=== PATIENT | female | born 1975 | race Hispanic/Latino ===

== ENCOUNTER 2016-06-20 15:28 | Outpatient (CLI) | payer BC ==
[2016-06-20 17:33] LABS: Thyroid Stimulating Hormone 0.6234 uIU/mL (0.35-4.94)
[2016-06-21 18:09] LABS: T4 5.7 ug/dL (4.87-11.72)
== END 2016-06-20 15:29 | disposition home or self-care (01) ==
LOC: NAV LAB 15:28
PROVIDERS: ATTEND Internal Medicine Endocrinology, Diabetes & Metabolism
DX: R53.83 Other fatigue (principal)
CPT/HCPCS: 36415; 84436; 84443; 84481

== ENCOUNTER 2016-09-26 09:02 | Outpatient (CLI) | payer BC ==
[2016-09-26 10:25] LABS: ALT (SGPT) 26 U/L (8-55); AST (SGOT) 23 U/L (5-34); Albumin 4.3 g/dL (3.5-5.0); Alkaline Phosphatase 75 U/L (40-150); Anion Gap 12 mmol/L (10-20); BUN (Urea Nitrogen) 10 mg/dL (7.0-18.7); Bilirubin, Total 0.6 mg/dL (0.2-1.2); Calc. Creatinine Clearance 0 mL/min (70-130); Calcium 9.6 mg/dL (7.8-10.44); Carbon Dioxide 26 mmol/L (22-29); Cardiac Risk 4.5 (Less than 4.5); Chloride 109 mmol/L (98-107); Cholesterol 211 mg/dl (< 200 Desired); Estimated GFR-MDRD 78; Globulin 3.4 g/dL (2.4-3.5); Glucose 97 mg/dL (70-105); HDL Cholesterol 47 mg/dL (>60 Neg Risk); LDL Cholesterol, Calculated 143 mg/dL; Potassium 3.4 mmol/L (3.5-5.1); Protein, Total 7.7 g/dL (6.0-8.3); Sodium 144 mmol/L (136-145); Triglycerides 104 mg/dL (Less than 150)
[2016-09-26 10:41] LABS: Free T4 (Free Thyroxine) 0.93 ng/dL (0.70-1.48); Thyroid Stimulating Hormone 0.088 uIU/mL (0.35-4.94); Vitamin D, 25 Hydroxy 30.5 ng/ml (> 30.0)
[2016-09-26 12:05] LABS: #Eosinphils 0.3 thou/uL (0.0-0.7); #Lymphocytes 1.9 thou/uL (1.20-3.40); #Monocytes 0.4 thou/uL (0.11-0.59); #Neutrophils 2.1 thou/uL (1.40-6.50); %Basophils 0.8 % (0.0-1.0); %Eosinophils 5.4 % (0.0-10.0); %Monocytes 9.2 % (0.0-10.0); %Neutrophils 44.6 % (42.0-75.0); Hemoglobin 12.4 g/dL (12.0-16.0); Mean Corpuscular HGB CONC 33.2 g/dL (32.0-36.0); Mean Corpuscular Hemoglobin 30.2 pg (27.0-31.0); Mean Platelet Volume 8.3 fL (7.4-10.4); Platelet Count 238 thou/uL (130-400); RBC Distribution Width 11.6 % (11.5-14.5); White Blood Cell (WBC) Count 4.8 thou/uL (4.8-10.8)
== END 2016-09-26 09:03 | disposition home or self-care (01) ==
LOC: NAV LAB 09:02
PROVIDERS: ATTEND Internal Medicine Endocrinology, Diabetes & Metabolism
DX: E03.9 Hypothyroidism, unspecified (principal); E55.9 Vitamin D deficiency, unspecified
CPT/HCPCS: 80053; 80061; 82306; 84439; 84443; 84481; 85025; 86376; 86800

== ENCOUNTER 2018-02-20 07:48 | Emergency (ER) | payer BC ==
[2018-02-20 08:17] LABS: #Basophils 0.1 thou/uL (0.0-0.2); #Eosinphils 0.2 thou/uL (0.0-0.7); #Lymphocytes 1.8 thou/uL (1.20-3.40); #Monocytes 0.5 thou/uL (0.11-0.59); #Neutrophils 3.3 thou/uL (1.40-6.50); %Basophils 1.2 % (0.0-1.0); %Lymphocytes 30.7 % (21.0-51.0); %Monocytes 7.8 % (0.0-10.0); %Neutrophils 56.3 % (42.0-75.0); Hemoglobin 13.4 g/dL (12.0-16.0); Mean Corpuscular HGB CONC 34.6 g/dL (32.0-36.0); Mean Corpuscular Hemoglobin 31.8 pg (27.0-31.0); Mean Corpuscular Volume 91.9 fL (78.0-98.0); Mean Platelet Volume 8.1 fL (7.4-10.4); Platelet Count 268 thou/uL (130-400); Red Blood Cell (RBC) Count 4.21 mill/uL (4.20-5.40); White Blood Cell (WBC) Count 5.9 thou/uL (4.8-10.8)
[2018-02-20 08:21] LABS: MDiff Complete? YES; Manual Diff?? NO
[2018-02-20] MEDS ORDERED: Ketorolac Tromethamine 30 MG/ML VIAL ONE (08:21)
[2018-02-20 08:34] LABS: ALT (SGPT) 26 U/L (8-55); AST (SGOT) 21 U/L (5-34); Albumin 4.3 g/dL (3.5-5.0); Alkaline Phosphatase 70 U/L (40-150); Anion Gap 13 mmol/L (10-20); BUN (Urea Nitrogen) 11 mg/dL (7.0-18.7); Bilirubin, Total 0.4 mg/dL (0.2-1.2); Calc. Creatinine Clearance 0 mL/min (70-130); Calcium 9.3 mg/dL (7.8-10.44); Carbon Dioxide 22 mmol/L (22-29); Chloride 108 mmol/L (98-107); Estimated GFR-MDRD 74; Globulin 3.1 g/dL (2.4-3.5); Glucose 133 mg/dL (70-105); Potassium 3.8 mmol/L (3.5-5.1); Protein, Total 7.4 g/dL (6.0-8.3); Sodium 139 mmol/L (136-145)
--- NOTE | 2018-02-20 10:32 | RAD ---
CHEST 2 VIEWS: Date: 02/20/18 HISTORY: Chest pain. COMPARISON: Radiograph from 2007. FINDINGS: Lungs are clear. No pneumothorax or effusion. Cardiac silhouette and mediastinal contours within norm al limits. IMPRESSION: No acute intrathoracic abnormality. POS: [facility]
== END 2018-02-20 09:05 | disposition home or self-care (01) ==
LOC: NAV ERS 07:48
DX: R07.9 Chest pain, unspecified (principal); E03.9 Hypothyroidism, unspecified; E78.5 Hyperlipidemia, unspecified; F32.9 Major depressive disorder, single episode, unspecified; Z79.899 Other long term (current) drug therapy
CPT/HCPCS: 36415; 71046; 80053; 84484; 85025; 93005; 96374; J1885